=== PATIENT | female | born 2000 | race Caucasian/White ===

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

== ENCOUNTER 2024-09-01 14:29 | Outpatient (CLI) | payer OTHER, SELFPAY ==
--- NOTE | 2024-09-01 14:40 | XR_ITS ---
WS: [id number] Left ankle, 3 views, 09/01/2024 Clinical Data: ANKLE JOINT PAIN Comparison: None. Findings: No fractures or dislocations are seen. The ankle mortise is normal. The talus and calcaneus are unremarkable. No soft tissue swelling over the medial or lateral malleolus is seen. XR/XR ankle LT min 3V* [id number] Impression: Negative left ankle.
--- NOTE | 2024-09-01 14:40 | XR_ITS ---
WS: [id number] Right ankle, 3 views, 09/01/2024 Clinical Data: ANKLE JOINT PAIN Comparison: Right ankle, 08/04/2019 Findings: No fractures or dislocations are seen. The ankle mortise is normal. The talus and calcaneus are unremarkable. No soft tissue swelling over the medial or lateral malleolus is seen. XR/XR ankle RT min 3V* [id number] Impression: Negative right ankle.
== END 2024-09-01 14:30 | disposition home or self-care (01) ==
PROVIDERS: PCP Family Medicine; Visit Provider Family Medicine
DX: M25.572 Pain in left ankle and joints of left foot (principal); M25.571 Pain in right ankle and joints of right foot
CPT/HCPCS: 73610

== ENCOUNTER → 2024-09-26 14:25 | Outpatient (BNVA) | payer MEDICAID, SELFPAY | PROVIDERS: PCP Family Medicine; Visit Provider Podiatrist Foot & Ankle Surgery | DX: M25.571 Pain in right ankle and joints of right foot (principal); M25.572 Pain in left ankle and joints of left foot; B35.3 Tinea pedis; M84.372A Stress fracture, left ankle, initial encounter for fracture | CPT/HCPCS: 73610 ==

== ENCOUNTER 2024-10-09 14:23 | Emergency (ER) | payer MEDICAID, SELFPAY ==
[2024-10-09 14:39] VITALS: BP 136/88; PULSE 73; TEMP 36.7; O2SAT 99; BMI 38.7
--- NOTE | 2024-10-09 14:52 | W.ED.EAR ---
HPI - Ear Problem General: Chief complaint: Ear Stated complaint: cotton stuck in ear Time Seen by Provider: 10/09/24 14:30 Source: patient Mode of arrival: ambulatory Limitations: no limitations History of Present Illness: 24-year-old female states that an hour ago she is using a Q-tip and the whole cotton piece slid off in her ear canal states she went to urgent care they were not able to get the piece of cotton out she denies any severe pain denies any other complaints Associated symptoms: Reports ear or mastoid pain; Denies fever(s), headache(s) or neck pain Related Data Home Medications ?Medication ?Instructions ?Recorded ?Confirmed fluoxetine 20 mg capsule (Prozac) 20 mg PO DAILY 09/26/24 10/09/24 semaglutide 0.25 mg or 0.5 mg (2 mg SUBCUT 09/26/24 10/09/24 mg/3 mL) subcutaneous pen injector (Ozempic) Previous Rx's ?Medication ?Instructions ?Recorded clotrimazole-betamethasone 1 1 applic topical BID 4 weeks #15 09/26/24 %-0.05 % topical cream grams Allergies Allergy/AdvReac Type Severity Reaction Status Date / Time No Known Allergies Allergy Verified 10/09/24 14:42 Review of Systems Const: Denies: fever(s), chills, body aches or change in appetite ENMT: Reports: ear or mastoid pain; Denies: throat pain or dental pain Card: Denies: chest pain Resp: Denies: dyspnea GI: Denies: abdominal pain, nausea, vomiting or diarrhea Musc: Denies: neck pain or back pain Skin/Breast: Denies: rash Neuro: Denies: headache(s) PFSH ED PFSH: Social History Smoking and tobacco/nicotine status: never used tobacco/nicotine Physical Exam Const: COMMON NORMALS: no acute distress, patient oriented x3 and healthy appearing HENMT: COMMON NORMALS: normocephalic and atraumatic HEAD & SCALP: normocephalic and atraumatic OTHER: Foreign body noted to left ear canal Neck/C-Spine: COMMON NORMALS: full ROM and supple Chest: COMMONS NORMALS: normal inspection of the chest and normal palpation of entire chest wall Resp: COMMON NORMALS: normal respiratory effort Cardio: COMMON NORMALS: regular rate RATE: regular rate Extremity: COMMON NORMALS: normal to inspection and full ROM Neuro: COMMON NORMALS: patient oriented x3, moves all extremities and no focal motor deficits Psych: COMMON NORMALS: mental status grossly normal, Normal thought process present and cooperative THOUGHT PROCESS: Normal thought process present Skin: COMMON NORMALS: no rashes or lesions noted and no wounds GENERAL SKIN EXAM: no rashes or lesions noted Procedures FB Removal Ear Location: ear canal (L) Foreign Body Suspected: other (contact) TM intact pre-procedure: yes Foreign Body Removed: yes Foreign Body Removal Technique: instrumentation Tympanic Membrane Intact Post Procedure: Yes Patient Tolerated Procedure: well Complications: none Course Vital Signs: Vital signs: Vital Signs Temperature 98.1 F 10/09/24 14:39 Pulse Rate 73 10/09/24 14:39 Blood Pressure 136/88 10/09/24 14:39 Pulse Oximetry 99 10/09/24 14:39 Oxygen Delivery Me thod Room Air 10/09/24 14:39 MDM - Ear Medical Decision Making Patient presents with foreign body to her left ear canal was able to pull it out the large piece of cotton patient was placed on antibiotic drops by urgent care she is to take them as prescribed she stable for discharge Medical Records I reviewed the patient's medical records. No radiology studies performed this visit Discharge Plan Discharge Patient Disposition: Home Clinical Impression: Acute foreign body of left ear canal Qualifiers: Encounter type: initial encounter Qualified Code(s): T16.2XXA - Foreign body in left ear, initial encounter Condition: Stable Prescriptions: No Action fluoxetine [Prozac] 20 mg capsule 20 mg PO DAILY Ozempic 0.25 mg or 0.5 mg (2 mg/3 mL) pen injector SUBCUT clotrimazole-betamethasone 1-0.05 % cream 1 applic topical BID 28 Days Qty: 15 0RF Discharge Orders: Discharge ED (Routine); Ordered 10/09/24 Ordered By: Guillermina Taylor Referrals: Caro Maki DO [Primary Care Provider] - Discharge Diet: Advance as tolerated Discharge Activity: Resume usual activity Patient Instructions: Foreign Body - Ear Print Language: Bangladeshi Coding Level of Care Code ED Receiving Operator for Brooklyng Devin
== END 2024-10-09 14:55 | disposition home or self-care (01) ==
PROVIDERS: Emergency Provider Emergency Medicine; PCP Family Medicine
DX: T16.2XXA Foreign body in left ear, initial encounter (principal); X58.XXXA Exposure to other specified factors, initial encounter
CPT/HCPCS: 99282

== ENCOUNTER 2024-10-12 12:05 | Outpatient (CLI) | payer MEDICAID, SELFPAY ==
--- NOTE | 2024-10-12 12:15 | MRR_ITS ---
PROCEDURE INFORMATION: Exam: MR Left Lower Extremity Joint Without Contrast; Ankle Exam date and time: 10/12/2024 12:23 PM Age: 24 years old Clinical indication: Bilat ankle pain fo a few years. Left worse at this time; Additional info: Rule out stress fracture TECHNIQUE: Imaging protocol: Magnetic resonance imaging of the left lower extremity without contrast. Exam focused on the ankle. COMPARISON: CR XR ankle LT min 3V* [id number] 09/26/2024 2:32 PM FINDINGS: Bones/joints: Unremarkable. No bone abnormalities. Articular cartilage is normal. No joint effusion. LIGAMENTS: Distal tibiofibular syndesmosis: Unremarkable. No tear. Anterior talofibular ligament: Thinning of the ATFL. Posterior talofibular ligament: Unremarkable. No tear. Calcaneofibular ligament: Unremarkable. No tear. Deltoid ligament complex: Unremarkable. No tear. TENDONS: Flexor tendons of foot: Unremarkable as visualized. Tibialis posterior tendon: Unremarkable as visualized. Peroneal tendons: Split tear of the peroneal brevis. Extensor tendons of foot: Unremarkable as visualized. Tibialis anterior tendon: Unremarkable as visualized. Achilles tendon: Unremarkable as visualized. Tarsal canal (Sinus tarsi): Unremarkable. Normal signal of the fat. Tarsal tunnel: Unremarkable. Soft tissues: Unremarkable. Plantar fascia: Mild nonspecific edema at the proximal soft tissues superficial to the plantar fascia. No evidence of plantar fascial thickening. No enthesophyte. MR/MR ankle LT wo con* [id number] IMPRESSION: Findings of low lateral ankle injury to include ATFL partial tear and peroneus brevis split tear.
== END 2024-10-12 12:06 | disposition home or self-care (01) ==
PROVIDERS: PCP Family Medicine; Visit Provider Podiatrist Foot & Ankle Surgery
DX: S86.312A Strain of muscle(s) and tendon(s) of peroneal muscle group at lower leg level, left leg, initial encounter (principal); X58.XXXA Exposure to other specified factors, initial encounter; R93.6 Abnormal findings on diagnostic imaging of limbs
CPT/HCPCS: 73721

== ENCOUNTER → 2025-04-03 09:23 | Outpatient (BNVA) | payer BC, MEDICAID, SELFPAY | PROVIDERS: PCP Family Medicine; Visit Provider Nurse Practitioner | DX: N92.6 Irregular menstruation, unspecified (principal) | CPT/HCPCS: 81025 ==

== ENCOUNTER → 2025-06-27 09:23 | Outpatient (BNVA) | payer BC, SELFPAY | PROVIDERS: PCP Family Medicine; Visit Provider Nurse Practitioner | DX: J02.9 Acute pharyngitis, unspecified (principal) | CPT/HCPCS: 87880 ==